=== PATIENT | female | born 1955 | race Caucasian/White ===

== ENCOUNTER 2018-08-03 06:11 | Day surgery (SDC) | payer OTHER ==
--- OUTSIDE RECORDS SUMMARY | 2018-08-03 06:31 | XMS REPORT ---
:1955 Author Organization eClinicalWorks Care Team Providers Name Role Phone Nirav Hemal Provider Role Unavailable Allergies No Known Allergies Problems Problem Type Condition Code Onset Dates Condition Status Problem Allergic rhinitis, seasonal J30.2 Active Problem Nicotine dependence F17.200 Active Problem Diabetes type 2, uncontrolled E11.65 Active Problem Insomnia G47.00 Active Problem Hypertension I10 Active Problem Chronic obstructive pulmonary J44.9 Active disease Problem Hyperlipidemia, mixed E78.2 Active Problem Coronary artery disease I25.10 Active Problem Cataract H26.9 Active Assessment Coronary artery disease I25.10 Active Assessment Hypertension I10 Active Assessment Nicotine dependence F17.200 Active Assessment Hyperlipidemia, mixed E78.2 Active Assessment Chronic obstructive pulmonary J44.9 Active disease Assessment Diabetes type 2, uncontrolled E11.65 Active Medications Medication Code Code Instructions Start End Status Dosage System Date Date Metoprolol [facility] 91692780360 100 MG Orally Active 1 tablet Tartrate Twice a day with food Lantus SoloStar [facility] 71553236930 100 UNIT/ML Active not Subcutaneous defined Aspir-81 [facility] 04005097773 81 MG Orally Active 1 tablet Once a day Plavix ND 91644627333 75 MG Orally Active 1 tablet Once a day Losartan ND 09768598344 100-12.5 MG November 16, Active 1 tablet Potassium-HCTZ Orally Once a 2017 day Metformin HCl ND 01318643435 500 MG Orally Active 1 tablet Twice a day with meals Amlodipine ND 98678231207 2.5 MG Orally Active 1 tablet Besylate Once a day Simvastatin ND 56356317240 40 MG Orally Active 1 tablet Once a day in the evening Diovan HCT [facility] 61405922108 320-12.5 MG Inactive 1 tablet Orally Once a day Results No Known Results Summary Purpose eClinicalWorks Submission
--- OUTSIDE RECORDS SUMMARY | 2018-08-03 06:31 | XMS REPORT ---
[...] disease I25.10 Active Problem Cataract H26.9 Active Medications Medication Code Code Instructions Start End Status Dosage System Date Date Plavix [facility] 24431219466 75 MG Orally Active 1 tablet Once a day Aspir-81 ND 05126938301 81 MG Orally Active 1 tablet Once a day Losartan ND 52950575733 100-12.5 MG Active 1 tablet Potassium-HCTZ Orally Once a day Metformin HCl ND 89418546930 500 MG Orally Active 1 tablet Twice a day with meals Metformin HCl [facility] 53043257837 500 MG Orally Active 1 tablet Twice a day with meals Lantus ND 70846464169 100 UNIT/ML May 31, Active 34 Units Subcutaneous 2019 Once daily at bedtiime Metoprolol ND 21640688634 100 MG Orally Active 1 tablet Tartrate Twice a day with food Tresiba ND 28079017475 100 UNIT/ML May 19, Active inject 30 FlexTouch Subcutaneous 2019 units Once a day Amlodipine ND 46270289384 5 MG Orally Once Active 1 tablet Besylate a day Simvastatin ND 63898004486 40 MG Orally Active 1 tablet Once a day in the evening Simvastatin NDC 94809411289 40 MG Orally Active 1 tablet Once a day in the evening Results No Known Results Summary Purpose eClinicalWorks Submission
--- OUTSIDE RECORDS SUMMARY | 2018-08-03 06:31 | XMS REPORT ---
:1955 Author Organization eClinicalWorks Care Team Providers Name Role Phone Hemal Gastelum Provider Role Unavailable Allergies No Known Allergies [...] I25.10 Active Problem Cataract H26.9 Active Medications No Known Medications Results No Known Results Summary Purpose eClinicalWorks Submission
--- OUTSIDE RECORDS SUMMARY | 2018-08-03 06:31 | XMS REPORT ---
:1955 Author Organization eClinicalWorks Care Team Providers Name Role Phone Nirav Hemal Provider Role Unavailable Allergies, Adverse Reactions, Alerts Substance Reaction Event Type penicillin Info Not Available Drug Allergy Trilipix Info Not Available Drug Allergy Codeine Sulfate Info Not Available Drug Allergy Ceftin Info Not Available Drug Allergy Problems Problem Type Condition Code Onset Dates Condition Status Problem Allergic rhinitis, seasonal J30.2 Active Problem Nicotine dependence F17.200 Active Problem Diabetes type 2, uncontrolled E11.65 Active Assessment Encounter for screening for Z13.820 Active osteoporosis Problem Insomnia G47.00 Active Problem Hypertension I10 Active Problem Chronic obstructive pulmonary J44.9 Active disease Problem Hyperlipidemia, mixed E78.2 Active Problem Coronary artery disease I25.10 Active Problem Cataract H26.9 Active Assessment Chronic obstructive pulmonary J44.9 Active disease Assessment Coronary artery disease I25.10 Active Assessment Encounter for screening mammogram Z12.31 Active for breast cancer Assessment Adult BMI 27.0-27.9 kg/sq m Z68.27 Active Assessment Nicotine dependence F17.200 Active Assessment Diabetes type 2, uncontrolled E11.65 Active Assessment Hypertension I10 Active Assessment Encounter for screening for other Z11.59 Active viral diseases Assessment Hyperlipidemia, mixed E78.2 Active Assessment Welcome to Medicare preventive Z00.00 Active visit Medications Medication Code Code Instructions Start End Status Dosage System Date Date Metoprolol ND 35429663989 100 MG Orally Active 1 tablet Tartrate Twice a day with food Amlodipine ND 09527216610 5 MG Orally Active 1 tablet Besylate Once a day Aspir-81 ND 80426021864 81 MG Orally Active 1 tablet Once a day Simvastatin ND 86216655087 40 MG Orally Active 1 tablet Once a day in the evening Tresiba ND 39970879248 100 UNIT/ML May 19, Active inject 30 FlexTouch Subcutaneous 2019 units Once a day Metformin HCl ND 65229648455 500 MG Orally Active 1 tablet Twice a day with meals Plavix [facility] 89991219072 75 MG Orally Active 1 tablet Once a day Metformin HCl [facility] 88008509669 500 MG Orally Active 1 tablet Twice a day with meals Losartan [facility] 10777772826 100-12.5 MG Active 1 tablet Potassium-HCTZ Orally Once a day Lantus SoloStar [facility] 92932963944 100 UNIT/ML Inactive not Subcutaneous defined Simvastatin [facility] 93920229054 40 MG Orally Active 1 tablet Once a day in the evening Results No Known Results Summary Purpose eClinicalWorks Submission
--- OUTSIDE RECORDS SUMMARY | 2018-08-03 06:31 | XMS REPORT ---
[...] Problem Cataract H26.9 Active Medications Medication Code System Code Instructions Start Date End Date Status Dosage Lantus [facility] 80671008818 100 UNIT/ML May 31, Active 34 Units Subcutaneous Once 2019 daily at bedtiine Results No Known Results Summary Purpose eClinicalWorks Submission
[2018-08-03] MEDS ORDERED: NA CHLORIDE 0.9% 1,000 ML ONE (06:56)
[2018-08-03] MEDS ORDERED: LIDOCAINE 1% MPF 5 ML VIAL ONE (07:40)
[2018-08-03] MEDS ORDERED: PROPOFOL 200 MG/20 ML VIAL IV ONE (07:40)
--- NOTE | 2018-08-03 08:12 | ENDO RPT ---
[address], [address] COLONOSCOPY PROCEDURE REPORT EXAM DATE: 08/03/2018 PATIENT NAME: Ernesto Nickerson MR #: [id number] BIRTHDATE: 1955 ATTENDING: Reji Gilmore MD STATUS: outpatient DUAL RATE SUPERVISOR: Jamila Antunez and Risa Monterroso RN INDICATIONS: The patient is a 63 yr old Female here for a colonoscopy due to cologuard test positive PROCEDURE PERFORMED: Colonoscopy with hot biopsy polypectomy MEDICATIONS: Per Anesthesia. ESTIMATED BLOOD LOSS: None CONSENT: The patient understands the risks and benefits of the procedure and understands that these risks include, but are not limited to: sedation, allergic reaction, infection, perforation and/or bleeding. Alternative means of evaluation and treatment include, among others: physical exam, x-rays, and/or surgical intervention. The patient elects to proceed with this endoscopic procedure. DESCRIPTION OF PROCEDURE: During intra-op preparation period all mechanical medical equipment was checked for proper function. Hand hygiene and appropriate measures for infection prevention was taken. Procedure, possible complications, alternatives including, but not limited to possibility of bleeding, perforation, tear, infection, sepsis, need for surgery, need for blood transfusion, were explained to the patient. After the risks, benefits and alternatives of the procedure were thoroughly explained, Informed consent was verified, confirmed and timeout was successfully executed by the treatment team. The patient was placed in the left lateral position. A digital rectal exam was performed and revealed external hemorrhoids. After appropriate level of anesthesia, the scope was passed. The EC-[id number] ([id number]) endoscope was introduced through the anus and advanced to the cecum, which was identified by transillumination from the light source, the appendix, and the ileocecal valve. The quality of the prep was good. The instrument was then slowly withdrawn as the colon was fully examined. Scope withdrawal time was . COLON FINDINGS: A half circumferential fungating mass with friable surfaces was found in the sigmoid colon. Multiple biopsies of the lesion were performed using hot forceps. Mild diverticulosis was noted in the descending colon. No bleeding was noted from the diverticulosis. Retroflexed views revealed no abnormalities. The scope was then completely withdrawn from the patient and the procedure terminated. ADVERSE EVENTS: There were no complications. IMPRESSIONS: 1. Half circumferential mass was found in the sigmoid colon; multiple biopsies of the lesion were performed 2. Diverticulosis 3. External hemorrhoids 4. Internal hemorrhoids RECOMMENDATIONS: 1. follow-up: office 1 week(s) 2. surgery 3. no seeds in diet 4. await biopsy results for elective bowel resection RECALL: for Colonoscopy, pending biopsy results. Reji Gilmore MD eSigned: Reji Gilmore MD 08/03/2018 8:11 AM cc: Hemal Gastelum MD CPT CODES: ICD9 CODES: PATIENT NAME: Ernesto Nickerson MR#: [id number]
== END 2018-08-03 08:21 | disposition home or self-care (01) ==
LOC: OR 06:11
PROVIDERS: ATTEND Surgery
PROC: 0DBN8ZX Excision of Sigmoid Colon, Via Natural or Artificial Opening Endoscopic, Diagnostic (ICD-10-PCS; principal; 2018-08-03 07:30)
DX: D12.5 Benign neoplasm of sigmoid colon (principal); A69.9 Spirochetal infection, unspecified; K57.30 Diverticulosis of large intestine without perforation or abscess without bleeding; K64.8 Other hemorrhoids; K64.4 Residual hemorrhoidal skin tags; E11.9 Type 2 diabetes mellitus without complications; E78.5 Hyperlipidemia, unspecified; I10 Essential (primary) hypertension; I25.10 Atherosclerotic heart disease of native coronary artery without angina pectoris; Z79.4 Long term (current) use of insulin; Z79.82 Long term (current) use of aspirin; Z79.899 Other long term (current) drug therapy; Z95.5 Presence of coronary angioplasty implant and graft
CPT/HCPCS: 45384; 82962; 88305; J2704; J7030

== ENCOUNTER 2019-01-24 15:23 | Emergency (ER) | payer OTHER ==
[2019-01-24 16:03] LABS: Absolute Lymphocytes (CBC) 0.7 K/uL (0.7-4.9); Basophils % 1.4 % (0-1.3); Lymphocytes % 4.1 % (15.3-44.8); MPV 7.8 fL (7.6-11.3); RBC Red Blood Cell Count 4.35 M/uL (3.86-4.86)
[2019-01-24] MEDS ORDERED: NA CHLORIDE 0.9% 1,000 ML ONE (16:17)
[2019-01-24 16:32] LABS: Blood Morphology Comment NOT SEEN (NOT SEEN); Platelet Estimate ADEQ; Urine White Blood Cell Casts OK
[2019-01-24 16:41] LABS: Albumin 3.6 g/dL (3.4-5.0); Bilirubin Direct 0.2 mg/dL (0-0.2); Bilirubin Total 0.7 mg/dL (0.2-1.0); Potassium 3.3 mmol/L (3.5-5.1); Protein, Total 7.6 g/dL (6.4-8.2)
[2019-01-24] MEDS ORDERED: CIPROFLOXACIN HCL 500 MG TAB ONE (16:56)
[2019-01-24 17:00] LABS: Urine Bacteria <20 /HPF (<20); Urine Culture Reflex Order REFLEXED; Urine RBC <5 /HPF (NONE SEEN)
--- NOTE | 2019-01-24 17:36 | RAD REPORT ---
EXAM DESCRIPTION: CT - Abdomen Pelvis W Contrast - 01/24/2019 5:08 pm CLINICAL HISTORY: Abdominal pain/dysuria COMPARISON: none. TECHNIQUE: Computed axial tomography of the abdomen pelvis was obtained. 100 cc Isovue-300 was admin istered intravenously. Oral contrast was not requested which limits evaluation of bowel. All CT scans are performed using dose optimization technique as appropriate and may include automated exposure control or mA/KV adjustment according to patient size. FINDINGS: The liver, spleen, and pancreas appear unremarkable. Small adrenal adenoma is suspected. Small right renal cyst. The right kidney demonstrates mildly diminished opacification. The wall of th e right renal pelvis and right ureter demonstrates enhancement. Extrarenal pelves are present. The le ft kidney is unremarkable There is no evidence of diverticulitis. IMPRESSION: Enhancing wall of the right renal pelvis and right ureter with mildly diminished opacifi cation of the right kidney. This probably indicates infection or inflammation. .
--- NOTE | 2019-01-24 17:49 | ER ---
Nurse's Notes [facility] Name: Ernesto Nickerson Age: 64 yrs Sex: Female : 1955 Arrival Date: 01/24/2019 Time: 15:25 Bed 24 Private MD: Hemal Gastelum Diagnosis: Urinary tract infection, site not specified-Right sided pyelonephritis Presentation: 01/24 15:31 Presenting complaint: Patient states: Urinary frequency for the past 2 days, yesterday aj1 she began to have lower back pain and fever. TMax 101.2, reports that she took Tylenol EXTENSION SPECIALIST and that brought her fever down. Transition of care: patient was not received from another setting of care. Onset of symptoms was January 22, 2019. Risk Assessment: Do you want to hurt yourself or someone else? Patient reports no desire to harm self or others. Initial Sepsis Screen: Does the patient meet any 2 criteria? HR > 90 bpm. No. Patient's initial sepsis screen is negative. Does the patient have a suspected source of infection? Yes: Dysuria/Frequency/Urgency/UTI. Care prior to arrival: None. 15:31 Method Of Arrival: Ambulatory aj1 15:31 Acuity: LATOSHA 3 aj1 Triage Assessment: 15:35 General: Appears in no apparent distress. uncomfortable, Behavior is calm, cooperative, aj1 appropriate for age. Pain: Complains of pain in low back area. Neuro: Level of Consciousness is awake, alert, obeys commands. Cardiovascular: Patient's skin is warm and dry. Respiratory: Airway is patent Respiratory effort is even, unlabored, Respiratory pattern is regular, symmetrical. : Reports urinary frequency. Musculoskeletal: Circulation, motion, and sensation intact. Historical: - Allergies: 15:35 PENICILLINS; aj1 15:35 Codeine; aj1 - Home Meds: 15:35 metformin 500 mg Oral Tb24 1 tab 2 times per day [Active]; losartan oral 12.5 mg oral aj1 once daily [Active]; simvastatin 40 mg Oral tab 1 tab once daily [Active]; Plavix 75 mg Oral tab 1 tab once daily [Active]; Lopressor 100 mg Oral tab 1 tab 2 times per day [Active]; amlodipine 5 mg tab 1 tab once daily [Active]; aspirin 325 mg Oral tab 1 tab once daily [Active]; Lantus 35 units Sub-Q daily [Active]; - PMHx: 15:35 Diabetes - NIDDM; cardiac stents x3; Hypertension; Asthma; aj1 - PSHx: 15:35 Cholecystectomy; aj1 - Immunization history:: Flu vaccine is up to date. - Social history:: Smoking status: Patient uses tobacco products, smokes one-half pack cigarettes per day. - Ebola Screening: : Patient denies travel to an Ebola-affected area in the 21 days before illness onset. Screenin:48 Abuse screen: Denies threats or abuse. Denies injuries from another. Nutritional wh screening: No deficits noted. Tuberculosis screening: No symptoms or risk factors identified. Fall Risk None identified. Assessment: 15:49 General: Appears in no apparent distress. Behavior is calm, cooperative, appropriate wh for age. Pain: Complains of pain in low back area Pain does not radiate. Pain currently is 4 out of 10 on a pain scale. Neuro: Level of Consciousness is awake, alert, obeys commands, Oriented to person, place, time, situation, Appropriate for age. Cardiovascular: Heart tones S1 S2. Respiratory: Airway is patent Respiratory effort is even, unlabored, Respiratory pattern is regular, symmetrical. GI: Abdomen is flat, non-distended. : Reports urinary frequency. EENT: No signs and/or symptoms were reported regarding the EENT system. Derm: Skin is intact, is healthy with good turgor, Skin is pink, warm \T\ dry. normal. Musculoskeletal: Circulation, motion, and sensation intact. 16:35 Reassessment: Patient appears in no apparent distress at this time. No changes from previously documented assessment. Patient and/or family updated on plan of care and expected duration. Pain level reassessed. Patient is alert, oriented x 3, equal unlabored respirations, skin warm/dry/pink. Patient denies pain at this time. 17:35 Reassessment: Patient appears in no apparent distress at this time. No changes from previously documented assessment. Patient and/or family updated on plan of care and expected duration. Pain level reassessed. Patient is alert, oriented x 3, equal unlabored respirations, skin warm/dry/pink. Patient denies pain at this time. Vital Signs: 15:35 BP 160 / 75; Pulse 109; Resp 20; Temp 99.0; Pulse Ox 96% on R/A; Weight 72.57 kg (R); aj1 Height 5 ft. 5 in. (165.10 cm) (R); 16:30 BP 125 / 75; Pulse 99; Resp 18; Pulse Ox 94% on R/A; wh 17:30 BP 114 / 63; Pulse 88; Resp 18; Pulse Ox 96% on R/A; 15:35 Body Mass Index 26.63 (72.57 kg, 165.10 cm) [facility] ED Course: 15:25 Patient arrived in ED. aj1 15:25 Hemal Gsatelum DO is Private Physician. aj1 15:28 Campbell Rdz, JAKY is PHCP. pm1 15:28 Tal Collado MD is Attending Physician. pm1 15:32 Triage completed. aj1 15:35 Arm band placed on Patient placed in an exam room. aj1 15:39 Jyothi Saavedra is Primary Nurse. 15:48 Patient has correct armband on for positive identification. Bed in low position. Call light in reach. Side rails up X 1. Pulse ox on. NIBP on. 16:00 Initial lab(s) drawn, by mn, sent to lab. Inserted saline lock: 22 gauge in left tr5 forearm, using aseptic technique. 17:08 CT Abd/Pelvis - IV Contrast Only In Process Unspecified. EDMS 18:09 No provider procedures requiring assistance completed. IV discontinued, intact, bleeding controlled, No redness/swelling at site. Administered Medications: 16:25 Drug: NS 0.9% 500 ml Route: IV; Rate: bolus; Site: right forearm; 18:10 Follow up: Response: No adverse reaction; IV Status: Completed infusion 16:47 Drug: NS 0.9% 500 ml Route: IV; Rate: bolus; Site: right forearm; 18:10 Follow up: Response: No adverse reaction; IV Status: Completed infusion 16:54 Drug: Cipro 500 mg Route: PO; 18:10 Follow up: Response: No adverse reaction Outcome: 17:48 Discharge ordered by . pm1 18:09 Discharged to home ambulatory, with family. 18:09 Condition: good 18:09 Discharge instructions given to patient, family, Instructed on discharge instructions, follow up and referral plans. medication usage, POC Pyelonephritis Demonstrated understanding of instructions, follow-up care, medications, POC Prescriptions given X 1. 18:11 Patient left the ED. wh Signatures: Dispatcher [employer] EDHellen Knott RN RN aj1 Campbell Rdz, FURNACE AND WASH EQUIPMENT OPERATOR FURNACE AND W[employer] EQUIPMENT OPERATOR pm1 Jyothi Saavedra Tommie, RN RN tr5
--- NOTE | 2019-01-24 17:49 | EDPHYS ---
Physician Documentation [facility] Name: Ernesto Nickerson Age: 64 yrs Sex: Female : 1955 Arrival Date: 01/24/2019 Time: 15:25 Bed 24 Private MD: Hemal Gastelum ED Physician Tal Collado HPI: 01/24 16:05 This 64 yrs old Female presents to ER via Ambulatory with complaints of pm1 Urinary Problem, Back Pain. 16:05 The patient presents with urinary symptoms, dysuria. Onset: The symptoms/episode pm1 began/occurred 2 day(s) ago. Modifying factors: The symptoms are alleviated by over the counter medications, Tylenol for the fever and the pain, the symptoms are aggravated by urinating. Associated signs and symptoms: Pertinent positives: fever, flank pain. Severity of symptoms: in the emergency department the symptoms have improved, markedly, with tylenol. The patient has experienced a previous episode, many years ago. The patient has not recently seen a physician. Historical: - Allergies: 15:35 PENICILLINS; aj1 15:35 Codeine; aj1 - Home Meds: 15:35 metformin 500 mg Oral Tb24 1 tab 2 times per day [Active]; losartan oral 12.5 mg oral aj1 once daily [Active]; simvastatin 40 mg Oral tab 1 tab once daily [Active]; Plavix 75 mg Oral tab 1 tab once daily [Active]; Lopressor 100 mg Oral tab 1 tab 2 times per day [Active]; amlodipine 5 mg tab 1 tab once daily [Active]; aspirin 325 mg Oral tab 1 tab once daily [Active]; Lantus 35 units Sub-Q daily [Active]; - PMHx: 15:35 Diabetes - NIDDM; cardiac stents x3; Hypertension; Asthma; aj1 - PSHx: 15:35 Cholecystectomy; aj1 - Immunization history:: Flu vaccine is up to date. - Social history:: Smoking status: Patient uses tobacco products, smokes one-half pack cigarettes per day. - Ebola Screening: : Patient denies travel to an Ebola-affected area in the 21 days before illness onset. ROS: 16:05 Positive for urinary symptoms, flank pain. pm1 16:05 Eyes: Negative for injury, pain, redness, and discharge, ENT: Negative for injury, pain, and discharge, Neck: Negative for injury, pain, and swelling, Cardiovascular: Negative for chest pain, palpitations, and edema, Respiratory: Negative for shortness of breath, cough, wheezing, and pleuritic chest pain, Abdomen/GI: Negative for abdominal pain, nausea, vomiting, diarrhea, and constipation. 16:05 MS/Extremity: Negative for injury and deformity, Skin: Negative for injury, rash, and discoloration, Neuro: Negative for headache, weakness, numbness, tingling, and seizure. 16:05 Constitutional: Positive for fever, Negative for poor PO intake. 16:05 Back: Positive for flank pain, bilaterally. Exam: 16:05 Constitutional: This is a well developed, well nourished patient who is awake, alert, pm1 and in no acute distress. Head/Face: Normocephalic, atraumatic. Neck: Trachea midline, no thyromegaly or masses palpated, and no cervical lymphadenopathy. Supple, full range of motion without nuchal rigidity, or vertebral point tenderness. No Meningismus. Chest/axilla: Normal chest wall appearance and motion. Nontender with no deformity. No lesions are appreciated. Respiratory: Lungs have equal breath sounds bilaterally, clear to auscultation and percussion. No rales, rhonchi or wheezes noted. No increased work of breathing, no retractions or nasal flaring. Abdomen/GI: Soft, non-tender, with normal bowel sounds. No distension or tympany. No guarding or rebound. No evidence of tenderness throughout. Back: No spinal tenderness. No costovertebral tenderness. Full range of motion. Skin: Warm, dry with normal turgor. Normal color with no rashes, no lesions, and no evidence of cellulitis. MS/ Extremity: Pulses equal, no cyanosis. Neurovascular intact. Full, normal range of motion. 16:05 Cardiovascular: Rate: tachycardic, Rhythm: regular, Pulses: no pulse deficits are appreciated, Heart sounds: normal, Edema: is not appreciated. 16:05 Neuro: Orientation: is normal, Motor: is normal, moves all fours, Gait: is steady, at a normal pace, without difficulty. Vital Signs: 15:35 BP 160 / 75; Pulse 109; Resp 20; Temp 99.0; Pulse Ox 96% on R/A; Weight 72.57 kg (R); aj1 Height 5 ft. 5 in. (165.10 cm) (R); 16:30 BP 125 / 75; Pulse 99; Resp 18; Pulse Ox 94% on R/A; wh 17:30 BP 114 / 63; Pulse 88; Resp 18; Pulse Ox 96% on R/A; wh 15:35 Body Mass Index 26.63 (72.57 kg, 165.10 cm) [facility] MDM: 15:28 Patient medically screened. pm1 16:04 Data reviewed: vital signs. Data interpreted: Pulse oximetry: on room air is 96 %. pm1 Interpretation: normal. 17:47 Counseling: I had a detailed discussion with the patient and/or guardian regarding: the pm1 historical points, exam findings, and any diagnostic results supporting the discharge/admit diagnosis, lab results, radiology results, the need for outpatient follow up, to return to the emergency department if symptoms worsen or persist or if there are any questions or concerns that arise at home. 01/24 15:31 Order name: Basic Metabolic Panel; Complete Time: 16:44 pm1 01/24 15:31 Order name: CBC with Diff; Complete Time: 16:44 pm1 01/24 15:31 Order name: Creatinine for Radiology; Complete Time: 16:44 pm1 01/24 15:31 Order name: Hepatic Function; Complete Time: 16:44 pm1 01/24 15:31 Order name: Lipase; Complete Time: 16:44 pm1 01/24 15:31 Order name: Urine Microscopic Only; Complete Time: 17:14 pm1 01/24 15:31 Order name: IV Saline Lock; Complete Time: 15:48 pm1 01/24 15:49 Order name: Urine Dipstick--Ancillary (enter results) 01/24 16:11 Order name: CBC Smear Scan; Complete Time: 16:44 EDIN 01/24 16:50 Order name: CT Abd/Pelvis - IV Contrast Only; Complete Time: 17:45 pm1 01/24 17:03 Order name: Urine Culture [facility] 01/24 15:31 Order name: Labs collected and sent; Complete Time: 15:48 pm1 01/24 15:31 Order name: Urine Dipstick-Ancillary (obtain specimen); Complete Time: 15:48 pm1 Administered Medications: 16:25 Drug: NS 0.9% 500 ml Route: IV; Rate: bolus; Site: right forearm; 18:10 Follow up: Response: No adverse reaction; IV Status: Completed infusion 16:47 Drug: NS 0.9% 500 ml Route: IV; Rate: bolus; Site: right forearm; 18:10 Follow up: Response: No adverse reaction; IV Status: Completed infusion 16:54 Drug: Cipro 500 mg Route: PO; 18:10 Follow up: Response: No adverse reaction Disposition: 18:16 Co-signature as Attending Physician, Tal Collado MD. rn Disposition: 01/24/19 17:48 Discharged to Home. Impression: Urinary tract infection, site not specified - Right sided pyelonephritis. - Condition is Stable. - Discharge Instructions: Pyelonephritis, Adult. - Prescriptions for Cipro 500 mg Oral Tablet - take 1 tablet by ORAL route every 12 hours for 7 days; 14 tablet. - Medication Reconciliation Form, Thank You Letter, Antibiotic Education, Prescription Opioid Use form. - Follow up: Emergency Department; When: As needed; Reason: Worsening of condition. Follow up: Private Physician; When: 2 - 3 days; Reason: Recheck today's complaints, Continuance of care, Re-evaluation by your physician. - Problem is new. - Symptoms have improved. Signatures: Dispatcher [employer] EDMS Hellen Larkin RN RN aj1 Tal Collado MD MD rn Marinas, Patrick, MOLTEN [employer] POURER MOLTEN [employer] POURER pm1 Jyothi Saavedra Corrections: (The following items were deleted from the chart) 18:11 17:48 01/24/2019 17:48 Discharged to Home. Impression: Urinary tract infection, site wh not specified - Right sided pyelonephritis. Condition is Stable. Forms are Medication Reconciliation Form, Thank You Letter, Antibiotic Education, Prescription Opioid Use. Follow up: Emergency Department; When: As needed; Reason: Worsening of condition. Follow up: Private Physician; When: 2 - 3 days; Reason: Recheck today's complaints, Continuance of care, Re-evaluation by your physician. Problem is new. Symptoms have improved. pm1
[2019-01-24 18:25] VITALS: TEMP 99
[2019-01-24 18:28] VITALS: BP 114/63; O2SAT 96
[2019-01-24 20:25] LABS: Urine Blood 2+ (NEG); Urine Glucose NEGATIVE (NEG); Urine Protein 1+ (NEG); Urine Specific Gravity <1.005 (1.005-1.030); Urine pH 5.5 (5.0-7.0)
== END 2019-01-24 18:11 | disposition home or self-care (01) ==
LOC: ER 15:23
DX: N39.0 Urinary tract infection, site not specified (principal); N12 Tubulo-interstitial nephritis, not specified as acute or chronic; I10 Essential (primary) hypertension; E11.9 Type 2 diabetes mellitus without complications; Z95.818 Presence of other cardiac implants and grafts; Z79.01 Long term (current) use of anticoagulants; Z79.82 Long term (current) use of aspirin; Z79.4 Long term (current) use of insulin; Z88.0 Allergy status to penicillin; Z88.5 Allergy status to narcotic agent
CPT/HCPCS: 96361; 87088; 85025; 87086; 80048; 36415; 80076; 83690; 74177; 96360; 99284; Q9967; J7030; 81003; 81015; 87077; 87186

== ENCOUNTER 2021-04-08 12:35 | Emergency (ER) | payer OTHER ==
--- OUTSIDE RECORDS SUMMARY | 2021-04-08 12:38 | XMS REPORT | Continuity of Care Document ---
:1955 Author Organization [facility] t Address [address] [place] [address] Care Team Providers Name Role Phone Unavailable Unavailable Unavailable Problems This patient has no known problems. Allergies, Adverse Reactions, Alerts Allergy Allergy Status Severity Reaction(s) Onset Inactive Treating Comm ents Source Name Type Date Date Clinician penicill Adverse Active Info Not [facility] Reaction Available [facility] Trilipix Adverse Active Info Not [facility] Reaction Available [facility] Ceftin Adverse Active Info Not [facility] Reaction Available [facility] Codeine Adverse Active Info Not [facility] Sulfate Reaction Available [facility] Medications Ordered Filled Start Stop Current Ordering Indication Dosage Frequency Signature Comments Components Source Medication Medication Date Date Medication? Clinician (SIG) Name Name Libra Brothersus Yes Hemal 41 units [facility] - [facility] Amlodipine Amlodipine Yes Hemal TAKE [address] [facility] Besylate Besylate Gastelum TABLET BY L ukes - MOUTH ONCE [facility] DAILY FOR l 30 DAYS [facility] ent [facility] Aspir-81 Aspir-81 Yes Hemal [address] [facility] Amlodipine Amlodipine Yes Hemal [address] [facility] Besylate Besylate Gastelum kes - [facility] Losartan Losartan Yes Hemal [address] Potassium Potassium Gastelum (take with [facility] - HCTZ) [facility] Simvastatin Simvastatin Yes Hemal [address] [facility] Gastelum in the [facility] - evening [facility] Simvastatin Simvastatin Yes Hemal TAKE [address] [facility] Gastelum TABLET BY [facility] MOUTH ONCE [facility] Metoprolol Metoprolol Yes Hemal [address] [facility] Tartrate Tartrate Gastelum with food L ukes - [facility] ent [facility] Losartan Losartan Yes Hemal [address] Potassium-H Potassium-H Gastelum [facility] - CTZ CTZ [facility] Metformin Metformin Yes Hemal [address] [facility] HCl HCl Gastelum with meals [facility] Hydrochloro Hydrochloro Yes Hemal [address] [facility] thiazide thiazide Gastelum in the Luke s - morning [facility] (take with l losartan) [facility] ent [facility] Plavix Plavix Yes Hemal 1 tablet [facility] - [facility] ent [facility] Procedures This patient has no known procedures. Encounters Start End Encounter Admission Attending Care Care Encounter Source Date/Time Date/Time Type Type Clinicians Facility Department ID 2021-03-19 2021-03-19 ambulatory [facility] [id number] [facility] 2020-12-16 2020-12-16 [facility] [id number] [facility] 2020-09-12 2020-09-12 [facility] [id number] [facility] 2020-07-26 2020-07-26 [facility] [id number] [facility] 2020-07-11 2020-07-11 [facility] [id number] [facility] 2020-07-04 2020-07-04 [facility] [id number] [facility] 2020-06-15 2020-06-15 [facility] [id number] [facility] 2020-06-14 2020-06-14 [facility] [id number] [facility] 2020-06-14 2020-06-14 [facility] [id number] [facility] 2020-05-07 2020-05-07 [facility] [id number] [facility] 2020-02-23 2020-02-23 Out[facility] [id number] [facility] 2020-02-08 2020-02-08 Out[facility] [id number] [facility] 2019-11-16 2019-11-16 [facility] [id number] [facility] 08:15:00 08:15:00 t [employer] s - Drive [facility] Medicine l Medicine Outpati ent Clinics 2019-09-06 2019-09-06 [facility] [id number] [facility] 14:02:00 14:02:00 t [facility] Medicine l Medicine Outpati ent Clinics 2019-08-14 2019-08-14 [facility] [id number] [facility] 16:13:00 16:13:00 t [employer] s - Drive [facility] Medicine l Medicine Outpati ent Clinics 2019-07-18 2019-07-18 [facility] [id number] [facility] 08:41:00 08:41:00 t [place] [employer] [facility] [facility] - Drive [facility] Medicine l Medicine Outpati ent Clinics 2019-07-12 2019-07-12 [facility] [id number] [facility] 14:20:00 14:20:00 t [place] [facility] [place] - [facility] Outpat[facility] ent Clinics 2019-07-03 2019-07-03 [facility] [id number] [facility] 09:56:00 09:56:00 t [facility] - Drive [facility] Medicine l Medicine Outpati ent Clinics 2019-06-08 2019-06-08 [facility] [id number] [address] 09:41:00 09:41:00 t [place] [employer] [place] [facility] - Drive [facility] l Medicine Outpati ent Clinics 2019-05-30 2019-05-30 [facility] [id number] [facility] 16:37:00 16:37:00 t [facility] - [facility] l Medicine Outpati ent Clinics 2019-05-17 2019-05-17 [facility] [id number] [address] 08:45:00 08:45:00 t [place] [facility] - [facility] l Medicine Outpati ent Clinics 2019-05-01 2019-05-01 [facility] [id number] [facility] 09:02:00 09:02:00 t [facility] - Drive [facility] Medicine l Medicine Outpati ent Clinics 2019-04-17 2019-04-17 [facility] [id number] [address] 09:21:00 09:21:00 t [place] [employer] [place] [facility] - Drive [facility] Medicine Outpati ent Clinics 2019-03-02 2019-03-02 [facility] [id number] [facility] 09:04:00 09:04:00 t [facility] - Drive [facility] l Medicine Outpati ent Clinics 2019-02-16 2019-02-16 [facility] [id number] 08:30:00 08:30:00 t [facility] - [facility] Medicine Outpati ent Clinics 2019-01-24 2019-01-24 [facility] [id number] [facility] 14:22:00 14:22:00 t [place] [employer] [place] [facility] - Drive [facility] l Medicine Outpati ent Clinics 2019-01-16 2019-01-16 [facility] [id number] 13:30:00 13:30:00 [facility] [address] [facility] - Drive [facility] Medicine l Medicine Outpati ent Clinics 2019-01-11 2019-01-11 [facility] [id number] 11:46:00 11:46:00 [facility] [address] [facility] - Drive [facility] Medicine l Medicine Outpati ent Clinics 2018-11-16 2018-11-16 [facility] [id number] 08:45:00 08:45:00 [facility] [address] [facility] - Drive [facility] l Medicine Outpati ent Clinics 2018-10-14 2018-10-14 [facility] [id number] 10:06:00 10:06:00 t [facility] [place] [facility] - Drive [facility] l Medicine Outpati ent Clinics 2018-08-25 2018-08-25 [facility] [id number] 09:38:00 09:38:00 t [facility] [place] s - Drive [facility] l Medicine Outpati ent Clinics 2018-08-17 2018-08-17 [facility] [id number] 08:30:00 08:30:00 t [facility] [place] [facility] - Drive [facility] Medicine l Medicine Outpati ent Clinics 2018-07-27 2018-07-27 [facility] [id number] 10:41:00 10:41:00 t [facility] [place] s - Drive [facility] Medicine l Medicine Outpati ent Clinics 2018-06-30 2018-06-30 [facility] [id number] [facility] 14:50:00 14:50:00 t [facility] [place] s - Drive [facility] Medicine Medicine Outpati ent Clinics 2018-06-09 2018-06-09 [facility] [id number] 12:15:00 12:15:00 t [facility] [place] [facility] - Drive [facility] l Medicine Outpati ent Clinics 2018-05-31 2018-05-31 [facility] [id number] 09:15:00 09:15:00 t [facility] [place] s - Drive [facility] l Medicine Outpati ent Clinics 2018-05-19 2018-05-19 [facility] [id number] [facility] 09:00:00 09:00:00 t [employer] [facility] 2017-11-16 2017-11-16 Outpatient Yahaira Self [id number] [facility] 08:45:00 08:45:00 t [employer] [facility] ent [facility] Results This patient has no known results.
--- NOTE | 2021-04-08 14:56 | RAD REPORT ---
EXAM DESCRIPTION: CT - C Spine Wo Con - 04/08/2021 2:47 pm CLINICAL HISTORY: neck pain, radicular pain Neck pain, radiculopathy COMPARISON: No comparisons FINDINGS: The cervical vertebral body heights are maintained. Mild lower cervical spondylosis. No evidence of acute cervical spine fracture or subluxation. Prevertebral soft tissues are normal in thickness. IMPRESSION: Negative for acute cervical spine abnormality. Mild lower cervical spondylosis. All CT scans are performed using dose optimization technique as appropriate and may include automated exposure control or mA/KV adjustment according to patient size.
[2021-04-08] MEDS ORDERED: DIAZEPAM 5 MG TABLET ONE (15:15)
--- NOTE | 2021-04-08 15:20 | RAD REPORT ---
EXAM DESCRIPTION: RAD - Shoulder Left 2 View - 04/08/2021 3:15 pm CLINICAL HISTORY: left shoulder pain Pain and swelling COMPARISON: No comparisons FINDINGS: Mild AC joint and glenohumeral joint arthritic changes are present. The bones are diffusel y osteopenic. No acute fracture or dislocation. Mild left lung interstitial lung opacities evident.
--- NOTE | 2021-04-08 15:33 | EDPHYS ---
Physician Documentation [facility] Name: Ernesto Nickerson Age: 66 yrs Sex: Female : 1955 Arrival Date: 04/08/2021 Time: 12:37 Bed 13 Private MD: ED Physician Tal Collado HPI: 04/08 14:38 This 66 yrs old Female presents to ER via Ambulatory with complaints of Neck Pain, jmm >24Hrs Old, Back Pain. 14:38 The patient or guardian complains of pain. Onset: The symptoms/episode began/occurred jmm gradually, 5 day(s) ago. Associated signs and symptoms: Pertinent positives:. The pain radiates to the anterior aspect of left shoulder. Modifying factors: The symptoms are alleviated by nothing. the symptoms are aggravated by nothing. The patient has experienced a previous episode, in lower back. Is a 66-year-old female with history of diabetes mellitus the presents emerged department with complaints of upper back pain which radiates to the left shoulder. Patient denies chest pain or shortness of breath. Patient denies strenuous activity. Patient states having similar episodes with low back pain with radiation down the leg. Denies weakness in the extremity. Denies fever.. Historical: - Home Meds: 12:55 simvastatin 40 mg Oral tab 1 tab once daily [Active]; [facility] - Immunization history:: Adult Immunizations up to date. - Social history:: Smoking status: Patient reports the use of cigarette tobacco products. ROS: 14:38 Constitutional: Negative for fever, chills, and weight loss, Cardiovascular: Negative jmm for chest pain, palpitations, and edema, Respiratory: Negative for shortness of breath, cough, wheezing, and pleuritic chest pain. 14:38 Neck: Positive for pain with movement. 14:38 All other systems are negative. Exam: 14:38 Constitutional: This is a well developed, well nourished patient who is awake, alert, jmm and in no acute distress. Head/Face: atraumatic. Eyes: EOMI, no conjunctival erythema appreciated ENT: Moist Mucus Membranes 14:38 Chest/axilla: Normal chest wall appearance and motion. Cardiovascular: Regular rate and rhythm. No edema appreciated Respiratory: Normal respirations, no respiratory distress appreciated Abdomen/GI: Non distended, soft Back: Normal ROM 14:38 Neck: Midline C-spine tenderness appreciated, full range of motion appreciated. 14:38 Musculoskeletal/extremity: Left trapezius pain on palpation, mild left-sided shoulder pain, mild pain on abduction, full ecg technician strength, full radial pulse, neurovascular intact. 14:38 Skin: Appearance: Color: normal in color. 14:38 Neuro: Orientation: is normal, Mentation: is normal, Memory: is normal. 14:38 Psych: Behavior/mood is pleasant, cooperative. Vital Signs: 12:51 BP 116 / 65; Pulse 62; Resp 17; Temp 97.6; Pulse Ox 100% ; Weight 77.56 kg; Height 5 jh6 ft. 5 in. (165.10 cm); Pain 1/10; 14:36 BP 173 / 81; Pulse 76; Resp 16; Pulse Ox 98% ; mh5 15:20 BP 131 / 97; Pulse 77; Resp 18; Pulse Ox 98% on R/A; ww 12:51 Body Mass Index 28.46 (77.56 kg, 165.10 cm) jh6 [place] Coma Score: 15:20 Eye Response: spontaneous(4). Verbal Response: oriented(5). Motor Response: obeys ww commands(6). Total: 15. MDM: 14:38 Patient medically screened. [facility] 15:31 Data reviewed: vital signs, nurses notes. Counseling: I had a detailed discussion with sherrill the patient and/or guardian regarding: the historical points, exam findings, and any diagnostic results supporting the discharge/admit diagnosis, radiology results, the need for outpatient follow up, to return to the emergency department if symptoms worsen or persist or if there are any questions or concerns that arise at home. ED course: Imaging studies negative. I do not suspect dissection, I do not suspect acute impingement syndrome. Patient advised to follow with orthopedics for further evaluation otherwise given strict return precautions. Patient understood agrees plan of care.. 04/08 14:39 Order name: CT C Spine; Complete Time: 15:00 [facility] 04/08 14:39 Order name: Shoulder Left (2 View) XRAY; Complete Time: 15:28 [facility] Administered Medications: 15:15 Not Given (Other Intervention Used; per DAFNE Pozo): Valium (diazepam) 2 mg PO once ss 15:20 Drug: Valium (diazepam) 5 mg Route: PO; ww 15:57 Drug: morphine 4 mg Route: IM; Site: right gluteus; ww 15:57 Drug: Zofran (Ondansetron) 4 mg Route: PO; ww Disposition: 17:26 Co-signature as Attending Physician, Tal Collado MD I agree with the assessment and rn plan of care. Attestation: The patient's history, exam findings, diagnostics, and a summary of any interventions or procedures was reviewed in detail with Jacobo LEOS. Disposition Summary: 04/08/21 15:32 Discharge Ordered Location: Home [facility] Condition: Stable [facility] Diagnosis - Cervical Strain [facility] Followup: [facility] - With: Law Manuel MD - When: 2 - 3 days - Reason: Recheck today's complaints, Continuance of care, Re-evaluation by your physician Discharge Instructions: - Discharge Summary Sheet [facility] - Cervical Strain and Sprain Rehab-[employer] [facility] Forms: - Medication Reconciliation Form [facility] - Thank You Letter [facility] - Antibiotic Education [facility] - Prescription Opioid Use [facility] Prescriptions: - orphenadrine citrate 100 mg Oral Tablet Sustained Release - take 1 tablet by ORAL route 2 times per day As needed; 20 tablet; Refills: 0, [facility] Product Selection Permitted Signatures: Dispatcher [employer] EDJacobo Wynne PA PA [facility] Tal Collado MD MD rn Smirch, Shelby, RN RN Concepcion Campos RN RN [facility] Suzie Vazquez RN RN Corrections: (The following items were deleted from the chart) 12:56 12:55 PMHx: Diabetes - NIDDM; [place] [id number] 12:56 12:55 PMHx: Cardiac Stents x3; [place] [id number] 12:56 12:55 PMHx: Hypertension; [place] [id number] 12:56 12:55 PMHx: Asthma; [place] [id number]
--- NOTE | 2021-04-08 15:33 | ER ---
Nurse's Notes [facility] Name: Ernesto Nickerson Age: 66 yrs Sex: Female : 1955 Arrival Date: 04/08/2021 Time: 12:37 Bed 13 Private MD: Diagnosis: Cervical Strain Presentation: 04/08 12:51 Chief complaint: Patient states: upper back pain that started 5 days ago no injury but jh6 has gotten worse over the last couple of days. Coronavirus screen: Vaccine status: Patient reports being unvaccinated. Ebola Screen: No symptoms or risks identified at this time. Initial Sepsis Screen: Does the patient meet any 2 criteria? No. Patient's initial sepsis screen is negative. Does the patient have a suspected source of infection? No. Patient's initial sepsis screen is negative. Risk Assessment: Do you want to hurt yourself or someone else? Patient reports no desire to harm self or others. Onset of symptoms was April 03, 2021. 12:51 Method Of Arrival: Ambulatory [facility] 12:51 Acuity: LATOSHA 2 [facility] 12:51 Acuity: LATOSHA 4 6 Triage Assessment: 12:56 General: Appears in no apparent distress. Behavior is calm, cooperative, Smells of. jh6 Pain: Complains of pain in base of the skull Pain radiates to left trapezius and left scapular area. Historical: - Home Meds: 12:55 simvastatin 40 mg Oral tab 1 tab once daily [Active]; jh6 - Immunization history:: Adult Immunizations up to date. - Social history:: Smoking status: Patient reports the use of cigarette tobacco products. Screenin:39 Abuse screen: Denies threats or abuse. Denies injuries from another. Nutritional nicole screening: No deficits noted. Tuberculosis screening: No symptoms or risk factors identified. Fall Risk None identified. Assessment: 14:39 Neuro: No deficits noted. nicole 14:40 Musculoskeletal: Reports pain in back Pain is 8 out of 10 on a pain scale. nicole 15:20 General: Appears in no apparent distress. well groomed, well developed, well nourished, ww Behavior is calm, cooperative, appropriate for age. Pain: Complains of pain in scalp and back Pain radiates to back and left arm Pain Is. Neuro: Level of Consciousness is awake, alert, obeys commands, Oriented to person, place, time, situation, Fur Tanner are equal bilaterally Moves all extremities. Speech is normal. Cardiovascular: Denies chest pain, palpitations, shortness of breath. Respiratory: No deficits noted. Airway is patent Respiratory effort is even, unlabored, Respiratory pattern is regular, symmetrical. GI: No deficits noted. No signs and/or symptoms were reported involving the gastrointestinal system. : No deficits noted. No signs and/or symptoms were reported regarding the genitourinary system. Derm: No deficits noted. No signs and/or symptoms reported regarding the dermatologic system. Musculoskeletal: Reports neck pain that radiates to left shoulder and down to middle of her back. 16:34 Reassessment: Patient appears in no apparent distress at this time. Patient states ww feeling better. Patient states symptoms have improved. Vital Signs: 12:51 BP 116 / 65; Pulse 62; Resp 17; Temp 97.6; Pulse Ox 100% ; Weight 77.56 kg; Height 5 6 ft. 5 in. (165.10 cm); Pain 1/10; 14:36 BP 173 / 81; Pulse 76; Resp 16; Pulse Ox 98% ; mh5 15:20 BP 131 / 97; Pulse 77; Resp 18; Pulse Ox 98% on R/A; ww 12:51 Body Mass Index 28.46 (77.56 kg, 165.10 cm) [facility] [place] Coma Score: 15:20 Eye Response: spontaneous(4). Verbal Response: oriented(5). Motor Response: obeys commands(6). Total: 15. ED Course: 12:37 Patient arrived in ED. ds1 12:55 Triage completed. [facility] 12:57 Arm band placed on right wrist. [facility] 14:25 Jacobo Knowles PA is PHCP. [facility] 14:25 Tal Collado MD is Attending Physician. [facility] 14:39 Patient has correct armband on for positive identification. Bed in low position. nicole 14:39 No provider procedures requiring assistance completed. nicole 14:40 Adult w/ patient. Pulse ox on. NIBP on. 5 14:47 CT C Spine In Process Unspecified. EDMS 14:54 Suzie Vazquez, RN is Primary Nurse. ww 15:15 Shoulder Left (2 View) XRAY In Process Unspecified. EDWV 15:32 Law Manuel MD is Referral Physician. [facility] 16:34 Patient did not have IV access during this emergency room visit. ww Administered Medications: 15:15 Not Given (Other Intervention Used; per DAFNE Pozo): Valium (diazepam) 2 mg PO once ss 15:20 Drug: Valium (diazepam) 5 mg Route: PO; ww 15:57 Drug: morphine 4 mg Route: IM; Site: right gluteus; ww 15:57 Drug: Zofran (Ondansetron) 4 mg Route: PO; ww Outcome: 15:32 Discharge ordered by MD. [facility] 16:34 Discharged to home with family. ww 16:34 Condition: stable 16:34 Discharge instructions given to patient, family, Instructed on discharge instructions, follow up and referral plans. medication usage, safety practices, Demonstrated understanding of instructions, follow-up care, medications, Prescriptions given X 1. 16:35 Patient left the ED. ww Signatures: Dispatcher [employer] EDMS Jacobo Knowles PA PA jmm [place], Demi ds1 Leslie Gilmore 5 Concepcion Campos RN RN 6 Suzie Vazquze RN RN ww Josselyn-StagerRe Shelby RN ss Corrections: (The following items were deleted from the chart) 12:56 12:55 PMHx: Diabetes - NIDDM; [place] [id number] 12:56 12:55 PMHx: Cardiac Stents x3; [place] [address] 12:56 12:55 PMHx: Hypertension; [place] [id number] 12:56 12:55 PMHx: Asthma; [place] [id number]
[2021-04-08] MEDS ORDERED: ONDANSETRON 4 MG (ODT) TAB ONE (15:50)
[2021-04-08] MEDS ORDERED: MORPHINE 4 MG/ML SYR ONE (15:50)
[2021-04-08 16:45] VITALS: TEMP 97.6
[2021-04-08 16:46] VITALS: O2SAT 98
[2021-04-08 16:48] VITALS: BP 131/97
== END 2021-04-08 16:35 | disposition home or self-care (01) ==
LOC: ER 12:35
DX: S16.1XXA Strain of muscle, fascia and tendon at neck level, initial encounter (principal); E11.9 Type 2 diabetes mellitus without complications; Z72.0 Tobacco use
CPT/HCPCS: 72125; 96372; 99284